=== PATIENT | female | born 1985 | race Caucasian/White ===

== ENCOUNTER 2018-10-05 10:31 | Emergency (ER) | payer SELFPAY ==
[~2018-10-05] VITALS: Ht 162.6 cm; Wt 74.8 kg
[~2018-10-05 10:31] MED LIST: AC325T PO; CA C1TAB66 PO; HYDR-700 PO; IBP600T1 PO; PRD50T PO; PREN1TAB39 PO; TR1C15 TOP
--- NOTE | 2018-10-05 11:12 | ED Lower Extremity ---
General Chief Complaint: Lower Extremity Stated Complaint: LEFT FOOT STEPPED ON NAIL Nursing Triage Note: Pt stepped on n ail with L foot. Pt reports last tetanus is unknown. Nursing Sepsis Screen: No Definite Risk Source: patient Exam Limitations: no limitations History of Present Illness Date Seen by Provider: Oct 05, 2018 Time Seen by Provider: 11:12 Initial Comments 33-year-old female patient presents to the emergency department for complaints of stepping on a nail with the left foot just prior to arrival. Patient was pulling limbs and turned stepping on the nail. Unknown last tetanus. Nail passed through a thick tennis shoe sole and sock. Location Injury Occurred: outiside home Onset: just prior to arrival Pain/Injury Location: left foot Method of Injury: other (puncture) Modifying Factors: Worse With Other (pain is worse with palpation and ambulation) Allergies and Home Medications Allergies Coded Allergies: No Known Drug Allergies (Verified , 08/10/07) Home Medications Acetaminophen 325 Mg Tablet, 325 MG PO PRN, (Reported) Ca Carbonate/Vitamin D3/Vit K 1 Each Tab.chew, 1 EACH PO DAILY, (Reported) Ibuprofen 600 Mg Tab, 600 MG PO Q6HR PRN, (Reported) Vits W-Ca,Fe,Fa(<1MG) 1 Each Tablet, 1 EACH PO DAILY, (Reported) Sulfamethoxazole/Trimethoprim 1 Each Tablet, 1 EACH PO BID Prescribed by: ALISSA HOPSON on 10/05/18 1228 Patient Home Medication List Home Medication List Reviewed: Yes Review of Systems Constitutional: no symptoms reported Respiratory: no symptoms reported Cardiovascular: no symptoms reported Musculoskeletal: see HPI, joint pain (left foot pain and puncture wound.) Skin: see HPI, other (puncture to the left foot) Psychiatric/Neurological: No Symptoms Reported All Other Systems Reviewed Negative Unless Noted: Yes (Negative excepted noted.) Past Esirkir-Mnnmzx-Qwnled Hx Past Med/Social Hx: Reviewed and Corrections made Patient Social History Alcohol Use: Denies Use Recreational Drug Use: No Smoking Status: Never a Smoker 2nd Hand Smoke Exposure: No Recent Foreign Travel: No Contact w/Someone Who Travel: No Recent Infectious Disease Expo: No Recent Hopitalizations: Yes ( X2) Physical Abuse: No Sexual Abuse: No Immunizations Up To Date Tetanus Booster (TDap): Unknown Date of Influenza Vaccine: May 06, 2011 Past Medical History Surgeries: Yes (knee, tonsillectomy) Respiratory: No Cardiac: No Neurological: No Reproductive Disorders: No Sexually Transmitted Disease: No Genitourinary: No Gastrointestinal: No Musculoskeletal: No Endocrine: No Cancer: No Psychosocial: No Integumentary: No Blood Disorders: No Family Medical History Reviewed Nursing Family Hx No Pertinent Family Hx Physical Exam Vital Signs Vital Signs - First Documented 10/05/18 11:00 Temp 97.8 Pulse 77 Resp 12 B/P (MAP) 128/77 (94) Pulse Ox 99 O2 Delivery Room Air Capillary Refill : Less Than 3 Seconds Height, Weight, BMI Height: 5'4.00" Weight: 165lbs. oz. 74.668386qr; BMI Method:Stated General Appearance: WD/WN, no apparent distress Cardiovascular: normal peripheral pulses, regular rate, rhythm, no murmur Respiratory: lungs clear, normal breath sounds, no respiratory distress, no accessory muscle use Knees: bilateral knee non-tender, bilateral knee normal inspection, bilateral knee normal range of motion, bilateral knee no evidence of injury Ankles: bilateral ankle non-tender, bilateral ankle normal inspection, bilateral ankle normal range of motion, bilateral ankle no evidence of injury Feet: right foot non-tender, right foot normal inspection; bilateral foot normal range of motion; right foot no evidence of injury; left foot pain (left plantar foot tenderness with a puncture wound noted. mild swelling. (see images).), left foot soft tissue tenderness, left foot swelling Neurologic/Tendon: normal sensation, normal motor functions, normal tendon functions, responds to pain, no evidence tendon injury Neurologic/Psychiatric: no motor/sensory deficits, alert, normal mood/affect, oriented x 3 Skin: normal color, warm/dry, other (puncture to the left distal plantar foot) Progress/Results/Core Measures Results/Orders My Orders Orders - ALISSA HOPSON Dipht,Pertuss(Acell),Tet Adult (Boostrix (10/05/18 11:30) Foot, Left, 3 Views (10/05/18 11:16) Ondansetron Oral Dissolve Tab (Zofran (10/05/18 12:13) Medications Given in ED Current Medications Medications Dose Ordered Sig/Ceasar Route Start Time Stop Time Status Last Admin Dose Admin Diphtheria/ Tetanus/Acell Pertussis 0.5 ml ONCE ONCE IM 10/05/18 11:30 10/05/18 11:31 DC 10/05/18 11:29 0.5 ML Vital Signs/I&O 10/05/18 10/05/18 11:00 12:39 Temp 97.8 97.8 Pulse 77 77 Resp 12 12 B/P (MAP) 128/77 (94) 128/77 (94) Pulse Ox 99 99 O2 Delivery Room Air Blood Pressure Mean: 94 Diagnostic Imaging Diagonstic Imaging: Xray Plain Films/CT/US/NM/MRI: other (left foot) Comments FOOT, LEFT, 3 VIEWS INDICATION: Stepped on a nail earlier in the day.. TECHNIQUE : 3 views of the left foot CORRELATION STUDY: None FINDINGS: The osseous structures of the foot are intact. Joint spaces are maintained. Alignment anatomic. Bipartite medial sesamoid bone over the great toe. There is small sesamoid bone of the metatarsal heads of all digits. Likely normal variation. Mildly prominent plantar calcaneal spur Soft tissues appearing unremarkable. No radiographic evidence for soft tissue foreign body. IMPRESSION: 1. Negative for acute findings of the foot. Dictated on workstation # [id number] Reviewed: Reviewed by Me (radiology report reviewed by me) Departure Communication (Admissions) Patient seen and evaluated. X-ray of the left foot obtained and tetanus booster given. Patient refuses pain medication at this time. States she'll take ibuprofen when she returns home. X-ray findings discussed with the patient. 172 chlorhexidine and sterile saline. Wound dressed with 4 x 4 gauze and a 3" Ramirez wrap. Proceed with discharge to home. Impression Primary Impression: Puncture wound of left foot excluding toes without complication Qualified Codes: S91.332A - Puncture wound without foreign body, left foot, initial encounter Disposition: , SELF-CARE Condition: Improved Departure-Patient Inst. Referrals: PAUL HALE MD (PCP/Family) Primary Care Physician Patient Instructions: Wound Care (DC) Add. Discharge Instructions: All discharge instructions reviewed with patient and/or family. Voiced understanding. Medications as instructed. Tylenol extra strength over-the- counter as directed for pain. Ibuprofen 800 mg by mouth every 8 hours as needed for pain. Elevate the left foot on pillows. Ice pack for 20 minute intervals as needed for pain. Shower with antibacterial soap. Cover with a bandage. Follow-up with your primary care provider for recheck as an outpatient. Call for appointment time. Return in the emergency department for worsened symptoms or any other concerns. Scripts Sulfamethoxazole/Trimethoprim (Bactrim Ds Tablet) 1 Each Tablet 1 EACH PO BID, #14 TAB 0 Refills Prov: ALISSA HOPSON 10/05/18 Images Extremities-Lower 1 - Puncture Wound 2 - Swelling, Tenderness ALISSA HOPSON Oct 05, 2018 11:12
[2018-10-05] MEDS ORDERED: TETANUS,DIPTH,PERTUSS P/F (BOOSTRIX) 0.5 ML VIAL IM ONE (11:30)
--- NOTE | 2018-10-05 12:02 | Diagnostic Imaging Report ---
INDICATION: Stepped on a nail earlier in the day.. TECHNIQUE: 3 views of the left foot CORRELATION STUDY: None FINDINGS: The osseous structures of the foot are intact. Joint spaces are maintained. Alignment anatomic. Bipartite medial sesamoid bone over the great toe. There is small sesamoid bone of the metatarsal heads of all digits. Likely normal variation. Mildly prominent plantar calcaneal spur Soft tissues appearing unremarkable. No radiographic evidence for soft tissue foreign body. IMPRESSION: 1. Negative for acute findings of the foot. Dictated by: Dictated on workstation # [id number]
[2018-10-05] MEDS ORDERED: SULF1TAB35 PO ×2 (12:05→12:28)
[2018-10-05] MEDS ORDERED: ONDANSETRON 4 MG (ZOFRAN) ORAL DISSOLVE TAB SL STA (12:13)
[2018-10-05 12:39] VITALS: BP 128/77
== END 2018-10-05 12:39 | disposition home or self-care (01) ==
LOC: EDUNIT# 10:31 → ER 10:33
DX: S91.332A Puncture wound without foreign body, left foot, initial encounter (principal); Z90.89 Acquired absence of other organs; Z23 Encounter for immunization; W45.0XXA Nail entering through skin, initial encounter
CPT/HCPCS: 73630; 90471; 90715

== ENCOUNTER 2019-05-24 11:33 | Inpatient (IN) | payer SELFPAY ==
[~2019-05-24] VITALS: Ht 165.1 cm; Wt 7.7 kg
[~2019-05-24 11:33] MED LIST changes: +SULF1TAB35 PO
[2019-05-24] MEDS ORDERED: NS IV 1000 ML 1,000 ML IV SCH (12:08)
[2019-05-24] MEDS ORDERED: ONDANSETRON 4 MG/2 ML (SDV) Z0FRAN IVP ONE (12:15)
[2019-05-24 12:22] LABS: BILIRUBIN,URINE NEGATIVE (NEGATIVE); CLARITY,URINE CLEAR; COLOR,URINE YELLOW; GLUCOSE, URINE (UA) NEGATIVE (NEGATIVE); KETONES,URINE 1+ (NEGATIVE); LEUKOCYTE ESTERASE ,URINE NEGATIVE (NEGATIVE); NITRITE,URINE NEGATIVE (NEGATIVE); PH,URINE 6.5 (5-9); PROTEIN,URINE NEGATIVE (NEGATIVE)
[2019-05-24 12:37] LABS: BACTERIA,URINE MODERATE /HPF
[2019-05-24 12:42] LABS: BASOPHILS % (AUTO) 0 % (0-10); EOSINOPHILS # (AUTO) 0.1 10^3/uL (0.0-0.3); EOSINOPHILS % (AUTO) 1 % (0-10); HEMATOCRIT 42 % (35-52); HEMOGLOBIN 14.9 G/DL (11.5-16.0); LYMPHOCYTES # (AUTO) 2.6 X 10^3 (1.0-4.0); LYMPHOCYTES % (AUTO) 21 % (12-44); MEAN CORPUSCULAR HEMOGLOBIN 31 PG (25-34); MEAN CORPUSCULAR HGB CONC 36 G/DL (32-36); MEAN CORPUSCULAR VOLUME 87 FL (80-99); MONOCYTES # (AUTO) 0.8 X 10^3 (0.0-1.0); MONOCYTES % (AUTO) 7 % (0-12); NEUTROPHILS # (AUTO) 8.6 X 10^3 (1.8-7.8); NEUTROPHILS % (AUTO) 71 % (42-75); PLATELET COUNT 256 10^3/uL (130-400); WHITE BLOOD COUNT 12.1 10^3/uL (4.3-11.0)
[2019-05-24 13:01] LABS: ALANINE AMINOTRANSFERASE 30 U/L (0-55); ALBUMIN 4.6 GM/DL (3.2-4.5); ALKALINE PHOSPHATASE 57 U/L (40-136); BILIRUBIN,TOTAL 0.8 MG/DL (0.1-1.0); BUN/CREATININE RATIO 22; CALCIUM 9.3 MG/DL (8.5-10.1); CARBON DIOXIDE 22 MMOL/L (21-32); CHLORIDE 106 MMOL/L (98-107); CREATININE SERUM 0.85 MG/DL (0.60-1.30); GFR ESTIMATED > 60; GLUCOSE 92 MG/DL (70-105); POTASSIUM 4.1 MMOL/L (3.6-5.0); SODIUM 139 MMOL/L (135-145); TOTAL PROTEIN 6.9 GM/DL (6.4-8.2)
--- NOTE | 2019-05-24 13:22 | Diagnostic Imaging Report ---
PROCEDURE: US Gallbladder. TECHNIQUE: Multiple real-time grayscale images were obtained over the right upper quadrant in various projections. INDICATION: Right upper quadrant pain. FINDINGS: Liver is normal in size at 15.8 cm. No discrete liver mass is detected. The portal vein is patent and shows normal direction of flow. The gallbladder wall does appear to be thickened at 6 mm. No definite stones or sludge are identified. No biliary ductal dilatation is seen. The pancreas was obscured by bowel gas. Right kidney is without calculi or hydronephrosis. There is some perihepatic fluid present. IMPRESSION: 1. Thickened gallbladder wall without cholelithiasis or sludge. 2. Upper GI abdominal ascites. Dictated by: Dictated on workstation # [id number]
[2019-05-24] MEDS ORDERED: fentaNYL INJECTION 100 MCG/2 ML AMP IVP ONE ×2 (13:30→14:00)
[2019-05-24] MEDS ORDERED: PIPERACILLIN SODIUM/TAZOBACTAM 4.5 GM in NS (IVPB) 100 ML IV ONE (13:30)
--- NOTE | 2019-05-24 13:37 | ED Abdominal Pain ---
General Chief Complaint: Abdominal/GI Problems Stated Complaint: LOWER ABD PAIN Nursing Triage Note: Pt amb to room #10 with c/o lower and upper Rt sided abd discomfort. Pt reports to have experienced x1 episode of emesis and x3 episodes of loose stools throughout this morning. Denies fever and reports chills. Reports onset of symptoms to be upon rise @ approx 0600 this am. Sepsis Screen: No Definite Risk Source of Information: Patient Exam Limitations: No Limitations History of Present Illness Date Seen by Provider: May 24, 2019 Time Seen by Provider: 12:00 Initial Comments This 34-year-old young lady presents to the emergency room with right sided abdominal pain. She became nauseated and vomited once around 04:00. Then she will get 06:00 with pain. She has severe pain with any movement including walking, breathing, talking, and riding in the car. She denies . She last ate a couple bites of eggs at 09:00. She tried taking Pepto-Bismol and Tylenol without benefit. She has had 3 stools in the last 24 hours and they have become soft. She denies fever. She is anxious. She denies with an LMP of 3 weeks ago. Allergies and Home Medications Allergies Coded Allergies: No Known Drug Allergies (Verified , 08/10/07) Home Medications Acetaminophen 325 Mg Tablet, 325 MG PO PRN, (Reported) Ca Carbonate/Vitamin D3/Vit K 1 Each Tab.chew, 1 EACH PO DAILY, (Reported) Ibuprofen 600 Mg Tab, 600 MG PO Q6HR PRN, (Reported) Vits W-Ca,Fe,Fa(<1MG) 1 Each Tablet, 1 EACH PO DAILY, (Reported) Sulfamethoxazole/Trimethoprim 1 Each Tablet, 1 EACH PO BID Prescribed by: ALISSA HOPSON on 10/05/18 9868 Patient Home Medication List Home Medication List Reviewed: Yes Review of Systems Review of Systems Constitutional: no symptoms reported EENTM: No Symptoms Reported Respiratory: No Symptoms Reported Cardiovascular: No Symptoms Reported Gastrointestinal: See HPI Genitourinary: No Symptoms Reported Musculoskeletal: no symptoms reported Skin: no symptoms reported Psychiatric/Neurological: See HPI Endocrine: No Symptoms Reported Past Mfpqnpw-Glrrlp-Akcnjm Hx Past Med/Social Hx: Reviewed and Corrections made Patient Social History Alcohol Use: Denies Use Recreational Drug Use: No Smoking Status: Never a Smoker 2nd Hand Smoke Exposure: No Recent Foreign Travel: No Contact w/Someone Who Travel: No Recent Infectious Disease Expo: No Recent Hopitalizations: Yes ( X2) Immunizations Up To Date Tetanus Booster (TDap): Unknown Date of Influenza Vaccine: May 06, 2011 Past Medical History Surgeries: Yes (knee, tonsillectomy) Ear Surgery, Orthopedic (bilateral knee arthroscopically), Tonsillectomy Respiratory: No Cardiac: No Neurological: No Reproductive Disorders: No Sexually Transmitted Disease: No Genitourinary: No Gastrointestinal: No Musculoskeletal: No Endocrine: No Cancer: No Psychosocial: No Integumentary: No Blood Disorders: No Family Medical History No Pertinent Family Hx Physical Exam Vital Signs Vital Signs - First Documented 05/24/19 11:46 Temp 36.6 Pulse 107 Resp 17 B/P (MAP) 130/92 (105) Pulse Ox 99 Capillary Refill : Less Than 3 Seconds Height/Weight/BMI Height: 5'4.00" Weight: 165lbs. oz. [id number]; 28.00 BMI Method:Stated General Appearance: WD/WN, mild distress HEENT: PERRL/EOMI, normal ENT inspection Neck: normal inspection Respiratory: lungs clear, normal breath sounds, no respiratory distress Cardiovascular: no edema, no murmur, tachycardia Gastrointestinal: normal bowel sounds, soft, tenderness (significant tenderness in the right upper quadrant. Must or tenderness in the right lower quadrant and left lower quadrant. There is pain to percussion as well. Ileopsoas sign is positive. 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, no motor/sensory deficits, alert, oriented x 3, other (anxious) Skin: normal color, warm/dry Progress/Results/Core Measures Results/Orders Lab Results Laboratory Tests Test 05/24/19 09:43 05/24/19 11:53 Range/Units White Blood Count 12.1 H 4.3-11.0 10^3/uL Red Blood Count 4.84 4.35-5.85 10^6/uL Hemoglobin 14.9 11.5-16.0 G/DL Hematocrit 42 35-52 % Mean Corpuscular Volume 87 80-99 FL Mean Corpuscular Hemoglobin 31 25-34 PG Mean Corpuscular Hemoglobin Concent 36 32-36 G/DL Red Cell Distribution Width 12.0 10.0-14.5 % Platelet Count 256 130-400 10^3/uL Mean Platelet Volume 10.0 7.4-10.4 FL Neutrophils (%) (Auto) 71 42-75 % Lymphocytes (%) (Auto) 21 12-44 % Monocytes (%) (Auto) 7 0-12 % Eosinophils (%) (Auto) 1 0-10 % Basophils (%) (Auto) 0 0-10 % Neutrophils # (Auto) 8.6 H 1.8-7.8 X 10^3 Lymphocytes # (Auto) 2.6 1.0-4.0 X 10^3 Monocytes # (Auto) 0.8 0.0-1.0 X 10^3 Eosinophils # (Auto) 0.1 0.0-0.3 10^3/uL Basophils # (Auto) 0.0 0.0-0.1 10^3/uL Sodium Level 139 135-145 MMOL/L Potassium Level 4.1 3.6-5.0 MMOL/L Chloride Level 106 98-107 MMOL/L Carbon Dioxide Level 22 21-32 MMOL/L Anion Gap 11 5-14 MMOL/L Blood Urea Nitrogen 19 H 7-18 MG/DL Creatinine 0.85 0.60-1.30 MG/DL Estimat Glomerular Filtration Rate > 60 BUN/Creatinine Ratio 22 Glucose Level 92 70-105 MG/DL Calcium Level 9.3 8.5-10.1 MG/DL Corrected Calcium 8.5-10.1 MG/DL Total Bilirubin 0.8 0.1-1.0 MG/DL Aspartate Amino Transf (AST/SGOT) 21 5-34 U/L Alanine Aminotransferase (ALT/SGPT) 30 0-55 U/L Alkaline Phosphatase 57 40-136 U/L C-Reactive Protein High Sensitivity 0.24 0.00-0.50 MG/DL Total Protein 6.9 6.4-8.2 GM/DL Albumin 4.6 H 3.2-4.5 GM/DL Lipase 23 8-78 U/L Serum Test, Qualitative NEGATIVE NEGATIVE Urine Color YELLOW Urine Clarity CLEAR Urine pH 6.5 5-9 Urine Specific [place] 1.020 1.016-1.022 Urine Protein NEGATIVE NEGATIVE Urine Glucose (UA) NEGATIVE NEGATIVE Urine Ketones 1+ H NEGATIVE Urine Nitrite NEGATIVE NEGATIVE Urine Bilirubin NEGATIVE NEGATIVE Urine Urobilinogen 0.2 < = 1.0 MG/DL Urine Leukocyte Esterase NEGATIVE NEGATIVE Urine RBC (Auto) NEGATIVE NEGATIVE Urine RBC NONE /HPF Urine WBC NONE /HPF Urine Squamous Epithelial Cells 5-10 /HPF Urine Crystals NONE /LPF Urine Bacteria MODERATE H /HPF Urine Casts NONE /LPF Urine Mucus NEGATIVE /LPF Urine Culture Indicated NO My Orders Orders - MARIBEL CARRERA MD Cbc With Automated Diff (05/24/19 12:08) Comprehensive Metabolic Panel (05/24/19 12:08) Hs C Reactive Protein (05/24/19 12:08) Hcg,Qualitative Serum (05/24/19 12:08) Ua Culture If Indicated (05/24/19 12:08) Ed Iv/Invasive Line Start (05/24/19 12:08) Us Gallbladder [id number] (05/24/19 12:08) Ed Iv/Invasive Line Start (05/24/19 12:08) Ns Iv 1000 Ml (Sodium Chloride 0.9%) (05/24/19 12:08) Ondansetron Injection (Zofran Injectio (05/24/19 12:15) Lipase (05/24/19 13:03) Fentanyl Injection (Sublimaze Injection (05/24/19 13:30) Piperacillin Sodium/Tazobactam (Zosyn Vi (05/24/19 13:30) Promethazine Injection (Phenergan Injec (05/24/19 14:00) Fentanyl Injection (Sublimaze Injection (05/24/19 14:00) Medications Given in ED Current Medications Medications Dose Ordered Sig/Ceasar Route Start Time Stop Time Status Last Admin Dose Admin Fentanyl Citrate 50 mcg ONCE ONCE IVP 05/24/19 13:30 05/24/19 13:31 DC 05/24/19 13:29 50 MCG Fentanyl Citrate 50 mcg ONCE ONCE IVP 05/24/19 14:00 05/24/19 14:01 DC 05/24/19 13:57 50 MCG Ondansetron HCl 8 mg ONCE ONCE IVP 05/24/19 12:15 05/24/19 12:16 DC 05/24/19 12:21 8 MG Piperacillin Sod/ Tazobactam Sod 4.5 gm/Sodium Chloride 100 ml @ 200 mls/hr ONCE ONCE IV 05/24/19 13:30 05/24/19 13:59 DC 05/24/19 14:10 200 MLS/HR Promethazine HCl 25 mg ONCE ONCE IVP 05/24/19 14:00 05/24/19 14:01 DC 05/24/19 13:59 25 MG Vital Signs/I&O 05/24/19 11:46 Temp 36.6 Pulse 107 Resp 17 B/P (MAP) 130/92 (105) Pulse Ox 99 Blood Pressure Mean: 105 POS Progress Progress Note : Progress Note Patient's pain was treated with fentanyl. She received Zofran for nausea. A liter of IV fluid was infused. Gallbladder ultrasound was positive for thickened wall. White count is slightly elevated. Patient appears to have acute cholecystitis. Dr. Schwab was consulted and plans to take her to surgery late tonight or early tomorrow. In the meantime, Zosyn is being administered for antibiotic therapy. Diagnostic Imaging Diagonstic Imaging: Ultrasound Plain Films/CT/US/NM/MRI: abdomen Comments NAME: ARMIN VO [facility] REC#: [id number] PT STATUS: REG ER : 1985 PHYSICIAN: MARIBEL CARRERA MD ADMIT DATE: 05/24/19/ER Draft Date of Exam:05/24/19 US GALLBLADDER [id number] PROCEDURE: US Gallbladder. TECHNIQUE: Multiple real-time grayscale images were obtained over the right upper quadrant in various projections. INDICATION: Right upper quadrant pain. FINDINGS: Liver is normal in size at 15.8 cm. No discrete liver mass is detected. The portal vein is patent and shows normal direction of flow. The gallbladder wall does appear to be thickened at 6 mm. No definite stones or sludge are identified. No biliary ductal dilatation is seen. The pancreas was obscured by bowel gas. Right kidney is without calculi or hydronephrosis. There is some perihepatic fluid present. IMPRESSION: 1. Thickened gallbladder wall without cholelithiasis or sludge. 2. Upper GI abdominal ascites. Dictated on workstation # [id number] Dict: 05/24/19 1317 Trans: 05/24/19 1322 [facility] [id number] Interpreted by: DEWEY PÉREZ MD Reviewed: Reviewed by La Departure Communication (Admissions) Time/Spoke to Admitting Phy: 13:26 Dr. Schwab Impression Primary Impression: Acute cholecystitis Disposition: 09 ADMITTED INPATIENT Condition: Improved Admissions Decision to Admit Reason: Admit from ER (General) Decision to Admit/Date: May 24, 2019 Time/Decision to Admit Time: 13:20 Departure-Patient Inst. Referrals: [facility] (PCP) Primary Care Physician AMBROCIO VALE (Family) Primary Care Physician AMRIBEL CARRERA MD May 24, 2019 13:37 POS
[2019-05-24] MEDS ORDERED: PROMETHAZINE INJ 25 MG/ML (PHENERGAN) AMP IVP ONE (14:00)
[2019-05-24] MEDS ORDERED: HYDROmorphone 2 MG/ML VIAL (DILAUDID) IV ONE (15:15)
--- NOTE | 2019-05-24 15:30 | NUR ---
GILDAARMIN Stallworth admitted to room 412-1, with an admitting diagnosis of ACUTE CHOLECYSTITIS, on 05/24/19 from ER via CART, accompanied by ER STAFF.ARMIN VO introduced to surroundings, call light, bed controls, phone, TV, temperature control, lights, meal times, smoking policy, visitor policy, side rail policy, bathrooms and showers. Patient Rights given to patient in the handbook. ARMIN VO verbalizes understanding that [facility] is not responsible for the loss or damage to any personal effects or valuables that are kept in the patients posession during their hospitalization. The following Patient Care Plans were discussed with the PT: Discharge Planning, PAIN, AND FL VOL DEFICIT. ARMIN VO verbalizes understanding of Interdisciplinary Patient Education. Patient and/or family were informed about the Rapid Response Team and its purpose. PT CME TO FLOOR WITH [facility] [place] [facility]
[2019-05-24 15:31] VITALS: BP 85/57
[2019-05-24] MEDS ORDERED: CATHETER FLUSH 10 ML SYR IV PRN (15:45)
[2019-05-24] MEDS ORDERED: HYDROmorphone 2 MG/ML VIAL (DILAUDID) IV PRN (15:45)
[2019-05-24] MEDS ORDERED: PROMETHAZINE INJ 25 MG/ML (PHENERGAN) AMP IV PRN (15:45)
[2019-05-24] MEDS: D5 1/2 NS W/KCL 20 MEQ/L 1,000 ML IV SCH ×2 (15:52→23:48)
--- NOTE | 2019-05-24 17:56 | History & Physical-Surgical ---
[facility] 05/24/19 1756: History of Present Illness History of Present Illness Reason for visit/HPI C/C: Right sided abdominal pain Clarisse is a 34 y/o female that presented to [facility] for right sided abdominal pain. The abdominal pain started around 6:00am today 05/24/19. She has also felt nausea and has vomited once. Moving makes it worse and laying on her left side makes it better. The patient has pain that starts on the RUQ and radiated to the right upper shoulder. Labs done in the ER show an elevated WBC of 12.1, Qualitative tests was negative and a gallbladder U/S shows 6mm gallbladder wall thickening without cholelithiasis or stone and upper GI abdominal ascites. . Date of Admission May 24, 2019 at 14:13 Date Seen by a Provider: May 24, 2019 Time Seen by a Provider: 17:30 I consulted on this patient on 05/24/19 17:50 Attending Physician Jose Zaidi DO Admitting Physician [place] Consult Allergies and Home Medications Allergies Coded Allergies: No Known Drug Allergies (Verified , 08/10/07) Home Medications Acetaminophen 325 Mg Tablet, 325 MG PO PRN, (Reported) Ca Carbonate/Vitamin D3/Vit K 1 Each Tab.chew, 1 EACH PO DAILY, (Reported) Vits W-Ca,Fe,Fa(<1MG) 1 Each Tablet, 1 EACH PO DAILY, (Reported) Past Wsekpfj-Qooqzs-Ngklni Hx Patient Social History Alcohol Use: Denies Use Recreational Drug Use: No Smoking Status: Never a Smoker 2nd Hand Smoke Exposure: No Recent Foreign Travel: No Contact w/Someone Who Travel: No Recent Infectious Disease Expo: No Recent Hopitalizations: Yes ( X2) Immunizations Up To Date Tetanus Booster (TDap): Unknown Date of Influenza Vaccine: Apr 13, 2019 Surgeries History of Surgeries: Yes (knee, tonsillectomy) Surgeries: Ear Surgery, Orthopedic (bilateral knee arthroscopically), Tonsillectomy Respiratory History of Respiratory Disorde: No Cardiovascular History of Cardiac Disorders: No Neurological History of Neurological Disord: No Reproductive System Hx Reproductive Disorders: No Sexually Transmitted Disease: No Genitourinary History of Genitourinary Disor: No Gastrointestinal History of Gastrointestinal Di: No Musculoskeletal History of Musculoskeletal Dis: No Endocrine History of Endocrine Disorders: No Cancer History of Cancer: No Psychosocial History of Psychiatric Problem: No Integumentary History of Skin or Integumenta: No Blood Transfusions History of Blood Disorders: No Family Medical History Significant Family History: No Pertinent Family Hx Review of Systems Constitutional: no symptoms reported EENTM: no symptoms reported Respiratory: no symptoms reported Cardiovascular: no symptoms reported Gastrointestinal: RUQ, abdominal pain (RUQ), nausea, vomiting, other (Pain radiating to the right shoulder. ) Genitourinary: no symptoms reported Musculoskeletal: no symptoms reported Skin: no symptoms reported Psychiatric/Neurological: No Symptoms Reported Physical Exam Vital Signs Vital Signs - First Documented 05/24/19 05/24/19 11:46 15:20 Temp 36.6 Pulse 107 Resp 17 B/P (MAP) 130/92 (105) Pulse Ox 99 O2 Delivery Room Air Capillary Refill : Less Than 3 Seconds Height, Weight, BMI Height: 5'4.00" Weight: 165lbs. oz. 74.230097bl; 28.35 BMI Method:Stated General Appearance: WD/WN, Mild Distress (on movement ) Eyes: Bilateral Eye PERRL, Bilateral Eye EOMI HEENT: PERRL/EOMI Neck: Full Range of Motion, Non Tender, Supple Respiratory: Chest Non Tender, Normal Breath Sounds, No Accessory Muscle Use, No Respiratory Distress Cardiovascular: Regular Rate, Rhythm, No Edema, Normal Peripheral Pulses Gastrointestinal: No No Organomegaly (RUQ tenderness with radiation to the rig ht shoulder); Tenderness Extremity: Normal Capillary Refill, Non Tender, No Calf Tenderness, No Pedal Edema Neurologic/Psychiatric: Alert, Oriented x3, hand rug braider II-XII Norm as Tested Skin: Normal Color, Warm/Dry Lymphatic: No Adenopathy Data Review Labs Laboratory Tests 05/24/19 09:43: White Blood Count 12.1H, Red Blood Count 4.84, Hemoglobin 14.9, Hematocrit 42, Mean Corpuscular Volume 87, Mean Corpuscular Hemoglobin 31, Mean Corpuscular Hemoglobin Concent 36, Red Cell Distribution Width 12.0, Platelet Count 256, Mean Platelet Volume 10.0, Neutrophils (%) (Auto) 71, Lymphocytes (%) (Auto) 21, Monocytes (%) (Auto) 7, Eosinophils (%) (Auto) 1, Basophils (%) (Auto) 0, Neutrophils # (Auto) 8.6H, Lymphocytes # (Auto) 2.6, Monocytes # (Auto) 0.8, Eosinophils # (Auto) 0.1, Basophils # (Auto) 0.0, Sodium Level 139, Potassium Level 4.1, Chloride Level 106, Carbon Dioxide Level 22, Anion Gap 11, Blood Urea Nitrogen 19H, Creatinine 0.85, Estimat Glomerular Filtration Rate > 60, BUN/Creatinine Ratio 22, Glucose Level 92, Calcium Level 9.3, Corrected Calcium , Total Bilirubin 0.8, Aspartate Amino Transf (AST/SGOT) 21, Alanine Aminotransferase (ALT/SGPT) 30, Alkaline Phosphatase 57, C-Reactive Protein High Sensitivity 0.24, Total Protein 6.9, Albumin 4.6H, Lipase 23, Serum Test, Qualitative NEGATIVE 05/24/19 11:53: Urine Color YELLOW, Urine Clarity CLEAR, Urine pH 6.5, Urine Specific [place] 1.020, Urine Protein NEGATIVE, Urine Glucose (UA) NEGATIVE, Urine Ketones 1+H, Urine Nitrite NEGATIVE, Urine Bilirubin NEGATIVE, Urine Urobilinogen 0.2, Urine Leukocyte Esterase NEGATIVE, Urine RBC (Auto) NEGATIVE, Urine RBC NONE, Urine WBC NONE, Urine Squamous Epithelial Cells 5-10, Urine Crystals NONE, Urine Bacteria MODERATEH, Urine Casts NONE, Urine Mucus NEGATIVE, Urine Culture Indicated NO Assessment/Plan Assessment/Plan Admission Diagonsis Acute cholecystitis/ Acalculous Cholecystitis, Leukocytosis, N/V - Laparoscopic cholecystectomy: removal of gallbladder tomorrow 05/25/19, giving Zosyn and fluids to calm inflammation. The risks and benefits were explained to the patient for laparoscopic cholecystectomy and all other indicated procedures. Rosa acknowledged and accepts them and wishes to proceed. - Pain control - N/V control Clinical Quality Measures DVT/VTE Risk/Contraindication: RFS Level Per Nursing on Admit: 0=No Risk/No VTE PPX JOSE ZAIDI DO 05/24/190: History of Present Illness History of Present Illness Reason for visit/HPI CC RUQ abd pain 34 year old female witih right upper quadrant abdominal pain that started this morning. Pain is sharp and radiates up to right shoulder. Movement makes pain worse and laying still makes better. Had nausea and emesis. Continuous pain now. Moderate to severe. Had gallbladder u/s demonstrating gallbladder wall at 6 mm. WBC 12.1 Allergies and Home Medications Allergies Coded Allergies: No Known Drug Allergies (Verified , 08/10/07) Home Medications Acetaminophen 325 Mg Tablet, 325 MG PO PRN, (Reported) Ca Carbonate/Vitamin D3/Vit K 1 Each Tab.chew, 1 EACH PO DAILY, (Reported) Vits W-Ca,Fe,Fa(<1MG) 1 Each Tablet, 1 EACH PO DAILY, (Reported) Patient Home Medication List Home Medication List Reviewed: Yes Past Bvmctcz-Oiftqv-Ziiotp Hx Patient Social History Alcohol Use: Denies Use Smoking Status: Never a Smoker Surgeries History of Surgeries: Yes Surgeries: Ear Surgery, Orthopedic (bilateral knee arthroscopically), Tonsillectomy Respiratory History of Respiratory Disorde: No Cardiovascular History of Cardiac Disorders: No Neurological History of Neurological Disord: No Reproductive System : No Genitourinary History of Genitourinary Disor: No Gastrointestinal History of Gastrointestinal Di: No Musculoskeletal History of Musculoskeletal Dis: No Endocrine History of Endocrine Disorders: No HEENT History of HEENT Disorders: No Cancer History of Cancer: No Psychosocial History of Psychiatric Problem: No Family Medical History Significant Family History: No Pertinent Family Hx Review of Systems Constitutional: no symptoms reported EENTM: no symptoms reported Gastrointestinal: RUQ, see HPI, abdominal pain (RUQ), nausea, vomiting, other ( Pain radiating to the right shoulder. ) Genitourinary: no symptoms reported Musculoskeletal: no symptoms reported Skin: no symptoms reported Psychiatric/Neurological: No Symptoms Reported Physical Exam General Appearance: Mild Distress HEENT: PERRL/EOMI Neck: Non Tender, Supple Respiratory: Chest Non Tender, No Accessory Muscle Use, No Respiratory Distress Cardiovascular: Regular Rate, Rhythm, Normal Peripheral Pulses Gastrointestinal: Tenderness (right upper quadrant) Rectal: Deferred Back: No CVA Tenderness Extremity: Normal Capillary Refill, Non Tender, No Calf Tenderness Neurologic/Psychiatric: Alert, Oriented x3, No Motor/Sensory Deficits, Normal Mood/Affect, hand rug braider II-XII Norm as Tested Skin: Normal Color, Warm/Dry Lymphatic: No Adenopathy Assessment/Plan Assessment/Plan Admission Status: Observation Assessment/Plan Acute cholecystitis/ Acalculous Cholecystitis, Leukocytosis, N/V Laparoscopic cholecystectomy intraoperative cholangiogram all other indicated p rocedures. Risks and benefits discussed and she wishes to proceed. NPO after midnight, can have ice chips till midnight. On Zosyn and fluids Pain control N/V control SCD's Supervisory-Addendum Brief Verification & Attestation Participated in pt care: history, MDM, physical Personally performed: exam, history, MDM, supervision of care Care discussed with: Medical Student Procedures: n/a Results interpretation: Verified all documentation Verification and Attestation of Medical Student E/M Service A medical student performed and documented this service in my presence. I reviewed and verified all information documented by the medical student and made modifications to such information, when appropriate. I personally performed the physical exam and medical decision making. Jose Zaidi, May 24, 2019,22:34 [facility] May 24, 2019 17:56 JOSE VERGARA DO May 24, 2019 22:30 POS
[2019-05-24 20:00] VITALS: BP 103/70
[2019-05-24] MEDS: fentaNYL INJECTION 100 MCG/2 ML AMP IV PRN (20:21)
[2019-05-24] MEDS ORDERED: NS (IVPB) 0 ML ONE (20:32)
[2019-05-24] MEDS ORDERED: PIPERACILLIN/TAZO 4.5 GM VIAL (ZOSYN) IV ONE ×2 (20:32→23:52)
[2019-05-24] MEDS: ONDANSETRON 4 MG/2 ML (SDV) Z0FRAN IV PRN (20:44)
[2019-05-24] MEDS: PIPERACILLIN/TAZO 4.5 GM/NS 100 ML IV SCH ×2 (20:45)
[2019-05-24] MEDS ORDERED: NS (IVPB) 100 ML ONE (23:52)
[2019-05-25] VITALS (15 sets, daily range): BP systolic 84–112; BP diastolic 43–68
--- NOTE | 2019-05-25 00:19 | NUR ---
THIS RN NOTIFIED THAT PT BP 80s/40s. THIS RN NOTIFIED DR. ZAIDI, NEW ORDERS OBTAINED, SEE ORDER HISTORY.
[2019-05-25] MEDS ORDERED: NS IV 1000 ML 1,000 ML IV ONE (00:30)
--- NOTE | 2019-05-25 01:54 | NUR ---
AMENDMENT TO NOTE ABOVE: PT BP 80s/50s.
[2019-05-25] MEDS: fentaNYL INJECTION 100 MCG/2 ML AMP IV PRN ×3 (03:41→11:53)
[2019-05-25] MEDS: D5 1/2 NS W/KCL 20 MEQ/L 1,000 ML IV SCH ×2 (03:46→07:43)
[2019-05-25] MEDS: PIPERACILLIN/TAZO 4.5 GM/NS 100 ML IV SCH ×2 (03:49)
--- NOTE | 2019-05-25 05:40 | NUR ---
PT UP IN SHOWER FOR SURGICAL SCRUB.
[2019-05-25] MEDS: ONDANSETRON 4 MG/2 ML (SDV) Z0FRAN IV PRN ×2 (08:07→11:52)
[2019-05-25] MEDS ORDERED: BUP/EPI 0.5% 1:200,000 (MARCAINE) 10ML VIAL IJ ONE (08:15)
[2019-05-25] MEDS ORDERED: NEOSTIGMINE 3 MG/3 ML VIAL ONE (09:00)
[2019-05-25] MEDS ORDERED: LIDOCAINE PF 2% 5 ML (XYLOCAINE) VIAL ONE (09:00)
[2019-05-25] MEDS ORDERED: MIDAZOLAM 2 MG/2 ML (VERSED) VIAL ONE (09:00)
[2019-05-25] MEDS ORDERED: ROCURONIUM 10 MG/ML 5 ML SYRINGE IV ONE ×2 (09:00→10:01)
[2019-05-25] MEDS ORDERED: SEVOFLURANE (ULTANE) 15 ML INHAL SOLN ONE ×3 (09:00→10:21)
[2019-05-25] MEDS ORDERED: proPOfol 200 MG/20 ML (DIPRIVAN) VIAL IV ONE (09:00)
[2019-05-25] MEDS ORDERED: ONDANSETRON 4 MG/2 ML (SDV) Z0FRAN ONE ×2 (09:00→10:19)
[2019-05-25] MEDS ORDERED: DEXAMETHASONE 10 MG/ML (DECADRON) 1 ML VIAL ONE (09:00)
[2019-05-25] MEDS: LACTATED RINGERS 1,000 ML IV PRN ×2 (09:00→09:35)
[2019-05-25] MEDS ORDERED: fentaNYL INJECTION 100 MCG/2 ML AMP ONE ×2 (09:00→09:37)
[2019-05-25] MEDS ORDERED: GLYCOPYRROLATE 0.2 MG/ML (ROBINUL) 2 ML VIAL ONE (09:00)
[2019-05-25] MEDS ORDERED: SCOPOLAMINE 1.5 MG (TRANSDERM-SCOP) PATCH ONE (09:07)
[2019-05-25] MEDS ORDERED: FAMOTIDINE 20MG/2ML IV (PEPCID) ONE (09:07)
[2019-05-25] MEDS ORDERED: IOPAMIDOL 61% 30 ML (ISOVUE 300) VIAL IV ONE (09:39)
[2019-05-25] MEDS ORDERED: PHENYLEPHRINE 100 MCG/ML 10 ML (ANESTHESIA) SYR ONE (09:44)
[2019-05-25] MEDS ORDERED: PIPERACILLIN/TAZOBACTAM (BULK) 4.5 GM in NS (IVPB) 100 ML IV ONE (09:45)
[2019-05-25] MEDS ORDERED: ONDANSETRON 4 MG/2 ML (SDV) Z0FRAN IVP PRN ×2 (10:00→13:15)
[2019-05-25] MEDS ORDERED: fentaNYL INJECTION 100 MCG/2 ML AMP IVP ONE (10:00)
[2019-05-25] MEDS ORDERED: MEPERIDINE (DEMEROL) INJ 50 MG/ML IVP ONE (10:00)
[2019-05-25] MEDS ORDERED: morphine INJ 10 MG/ML 1ML (SYR OR VIAL) IVP ONE (10:00)
[2019-05-25] MEDS ORDERED: ceFAZolin INJECTION 1,000 MG ONE (10:04)
[2019-05-25] MEDS ORDERED: ceFAZolin INJECTION 1,000 MG in WATER (STERILE) FOR INJECTION 10 ML IV NR (10:15)
--- NOTE | 2019-05-25 10:40 | NUR ---
Report received from Rhea BRUCE.
--- NOTE | 2019-05-25 11:11 | Progress Note-Post Operative ---
Post-Operative Progess Note Surgeon (s)/Systems Applications Programming Lead (s) Surgeon SHANTEL ZAIDI DO Systems Applications Programming Lead: Deniz Pre-Operative Diagnosis cholecystitis, ruq abd pain Post-Operative Diagnosis right ovarian hemorrhagic cyst, hemoperitoneum Procedure & Operative Findings Date of Procedure 05/25/19 Procedure Performed/Findings diagnostic laparoscopy Anesthesia Type general Estimated Blood Loss Estimated blood loss (mL): old blood approximately 1500 mL in abdomen, minimal surgical Specimens/Packing Specimens Removed na SHANTEL ZAIDI DO May 25, 2019 11:11 POS
--- NOTE | 2019-05-25 11:30 | NUR ---
Report received from Porsha Escalera RN.
--- NOTE | 2019-05-25 11:40 | NUR ---
vital signs obtained. plan of care reviewed with pt and . pt tearful and reports pain and nausea.
--- NOTE | 2019-05-25 12:09 | Anesthesia-General Post-Op ---
General Patient Condition Mental Status/LOC: Same as Preop Cardiovascular: Satisfactory Nausea/Vomiting: Absent Respiratory: Satisfactory Pain: Controlled Complications: Absent Post Op Complications Complications None Follow Up Care/Instructions Patient Instructions None needed. Anesthesia/Patient Condition Patient Condition Patient is doing well, no complaints, stable vital signs, no apparent adverse anesthesia problems. No complications reported per nursing. LENORE SULLIVAN CRNA May 25, 2019 12:09 POS
--- NOTE | 2019-05-25 12:26 | NUR ---
Dr Williamson called and notified of blood pressure, pulse obtained and pain medication given.
--- NOTE | 2019-05-25 12:45 | NUR ---
Dr Williamson to bedside and reviewed plan of care with pt and .
--- NOTE | 2019-05-25 13:05 | NUR ---
Rn to bedside. pt resting. denies needs at this time.
[2019-05-25] MEDS ORDERED: D5 LR IV SOLUTION 1,000 ML IV SCH (13:07)
[2019-05-25] MEDS ORDERED: DOCU-143 PO (13:10)
[2019-05-25] MEDS ORDERED: ACHD5005 PO (13:10)
[2019-05-25] MEDS ORDERED: IBUP-1773 PO (13:10)
--- NOTE | 2019-05-25 13:12 | Discharge Inst-Women's Service ---
Discharge Inst-Women's Serv Depart Medication/Instructions New, Converted or Re-Newed RX: RX on Chart Problems Reviewed?: Yes Consults/Follow Up Additional Follow Up: Yes Orders/Referrals Dr. Williamson in 7-10 days Activity Activity: Activity as Tolerated Driving Instructions: No Driving for 1 Week NO SMOKING: NO SMOKING Nothing Inside Vagina: No Douching, No [place], No Tampons Diet Discharge Diet: No Restrictions Symptoms to Report to : Bleeding Excessive, Pain Increased, Fever Over 101 Degrees F, Vaginal Bleeding Increase, Questions/Concerns For Any Problems or Questions: Contact Your Physician Skin/Wound Care Infection Signs and Symptoms: Increased Redness, Foul Odor of Wound, Increased Drainage, Skin Itchy or Has a Rash, Increased Swelling, Temperature Above 101 F Operative Area Clean and Dry: Keep Incision Clean/Dry Stitches/Coram/Dermabond: Dermabond, Care of Stitches Bathing Instructions: WHIT Garcia DO May 25, 2019 13:12 POS
[2019-05-25] MEDS ORDERED: KETOROLAC 30 MG/ML VIAL IVP ONE (13:15)
--- NOTE | 2019-05-25 14:20 | NUR ---
IV redressed due to leaking noted around insertion. continued leaking noted. will call dr hill.
[2019-05-25] MEDS ORDERED: ONDANSETRON 4 MG (ZOFRAN) ORAL DISSOLVE TAB PO PRN (14:45)
[2019-05-25] MEDS: ACETAMINOPHEN 500 MG TAB (TYLENOL) PO PRN (15:05)
--- NOTE | 2019-05-25 16:45 | NUR ---
Ambulating in halls
--- NOTE | 2019-05-25 17:31 | NUR ---
towels given along with gown per pt request to shower.
[2019-05-25] MEDS: HYDROcodone/APAP 5 MG/325 MG (LORTAB) TAB PO PRN (18:17)
[2019-05-25] MEDS: IBUPROFEN 600 MG (MOTRIN) TAB PO SCH (20:54)
--- NOTE | 2019-05-25 23:14 | OPERATIVE REPORT ---
DATE OF SERVICE: INTRAOPERATIVE CONSULTATION REQUESTED BY: Jose Schwab DO PREOPERATIVE DIAGNOSIS: Thickening of the gallbladder on ultrasound. POSTOPERATIVE DIAGNOSIS: Hematoperitoneum with ruptured right hemorrhagic ovarian cyst. INTRAOPERATIVE CONSULTATION IN DETAIL: I was called to the operating room after finding of free blood that had clotted that was in the peritoneal cavity upon entrance on laparoscopic evaluation by Dr. Schwab and Dr. Guaman. The patient had been kept overnight for suspected acute cholecystitis; however, upon evaluation laparoscopically, the gallbladder appeared to have reactive inflammation due to hematoperitoneum. On evaluation in the pelvis, there was of note a ruptured right ovarian cyst that was still bleeding somewhat as well as clot formation throughout the pelvis and abdomen as well as a clot on the side of that right ovary. There was still a persistent cyst noted on that right ovary as well. I was consulted to come evaluate and treat this due to it being a gynecologic pathology. Once in the operating room, Dr. Schwab and Dr. Guaman already scrubbed into the case. There were three trocar sites and the patient was in supine position and in Trendelenburg. There were three trocars in place and infraumbilical trocar, one in the left lower quadrant and there is one on the right mid abdomen as well. I scrubbed into the case and evaluated the pelvis first starting by suction irrigating the pelvis and evaluating the right ovary. It is lifted upward and retracted. I am able to see the area of concern that is bleeding. I take a hook spatula and opened this up using cautery and cauterized the edges stopping the bleeding from the ovary and evacuating a small blood clot from the ovary as well as cystic fluid. Once this was done, the ovary itself appears hemostatic. I copiously irrigated again the pelvis using normal saline. There was no active bleeding noted from any of my dissection planes. At that point, I deemed my part of the procedure complete and handed the procedure back over to Dr. Schwab and Dr. Guaman to proceed with closure and postoperative orders. Job ID: [id number] DocumentID: [id number] Dictated Date: 05/25/2019 10:33:30 Cat Scanner Operator Date: 05/25/2019 14:48:18 Dictated By: WHIT CHEW DO
[2019-05-26 00:27] VITALS: BP 87/51
[2019-05-26] MEDS: ACETAMINOPHEN 500 MG TAB (TYLENOL) PO PRN (00:33)
[2019-05-26 04:30] VITALS: BP 97/56
[2019-05-26] MEDS: IBUPROFEN 600 MG (MOTRIN) TAB PO SCH (04:30)
[2019-05-26 07:33] LABS: BASOPHILS % (AUTO) 0 % (0-10); EOSINOPHILS % (AUTO) 1 % (0-10); HEMATOCRIT 31 % (35-52); HEMOGLOBIN 10.6 G/DL (11.5-16.0); LYMPHOCYTES # (AUTO) 3.3 X 10^3 (1.0-4.0); LYMPHOCYTES % (AUTO) 43 % (12-44); MEAN CORPUSCULAR HEMOGLOBIN 31 PG (25-34); MEAN CORPUSCULAR HGB CONC 35 G/DL (32-36); MEAN CORPUSCULAR VOLUME 90 FL (80-99); MEAN PLATELET VOLUME 10.3 FL (7.4-10.4); MONOCYTES # (AUTO) 0.6 X 10^3 (0.0-1.0); MONOCYTES % (AUTO) 8 % (0-12); NEUTROPHILS # (AUTO) 3.8 X 10^3 (1.8-7.8); NEUTROPHILS % (AUTO) 49 % (42-75); PLATELET COUNT 193 10^3/uL (130-400); WHITE BLOOD COUNT 7.8 10^3/uL (4.3-11.0)
[2019-05-26 08:20] VITALS: BP 94/50
[2019-05-26] MEDS: HYDROcodone/APAP 5 MG/325 MG (LORTAB) TAB PO PRN (08:27)
--- NOTE | 2019-05-26 08:31 | Progress Note ---
Standard Progress Note Progress Notes/Assess & Plan Date Seen by a Provider: May 26, 2019 Time Seen by a Provider: 08:25 Progress/Assessment & Plan Patient doing well POD laparoscopy. Reports some itching and skin color changes, but otherwise no concerns. AMbulating and voiding freely. Incisions: c/d/i Diagnosis; POD 1 Laparoscopy and evacuation of hematoperitoneum P: RTC in 7-10 days PO precautions reviewed. Vital Sign - Last 24 Hours 05/25/19 05/25/19 05/25/19 05/25/19 10:37 10:37 10:40 10:45 Temp 36.4 Resp 18 20 B/P (MAP) 112/64 (80) 110/65 (80) Pulse Ox 100 100 O2 Delivery OxyMask OxyMask OxyMask OxyMask O2 Flow Rate 5 5 5 5 05/25/19 05/25/19 05/25/19 05/25/19 10:50 11:00 11:00 11:10 Resp 20 20 20 B/P (MAP) 107/63 (78) 110/61 (77) 111/53 (72) Pulse Ox 100 99 99 O2 Delivery OxyMask OxyMask Room Air OxyMask O2 Flow Rate 5 5 5 5 05/25/19 05/25/19 05/25/19 05/25/19 11:15 11:20 11:30 11:35 Resp 20 B/P (MAP) 110/62 (78) Pulse Ox 98 O2 Delivery Room Air Room Air Room Air Room Air 05/25/19 05/25/19 05/25/19 05/25/19 11:35 11:43 11:45 13:55 Temp 36.4 36.4 37.1 Pulse 80 80 Resp 20 20 18 B/P (MAP) 110/62 (78) 84/43 (57) 105/68 (80) Pulse Ox 97 99 O2 Delivery Room Air Room Air Room Air Room Air 05/25/19 05/25/19 05/25/19 05/25/19 17:25 18:15 20:54 20:54 Temp 37.2 37.1 36.7 Pulse 99 90 97 Resp 18 20 20 B/P (MAP) 94/64 (74) 102/59 (73) 94/53 (67) Pulse Ox 99 100 98 O2 Delivery Room Air Room Air Room Air Room Air 05/26/19 05/26/19 00:27 04:30 Temp 36.9 37.3 Pulse 83 84 Resp 18 18 B/P (MAP) 87/51 (63) 97/56 (70) Pulse Ox 98 98 O2 Delivery Room Air Room Air Intake and Output 05/25/19 05/25/19 05/26/19 15:00 23:00 07:00 Intake Total 1110 ml 400 ml Balance 1110 ml 400 ml Laboratory Tests Test 05/26/19 07:05 Range/Units White Blood Count 7.8 4.3-11.0 10^3/uL Red Blood Count 3.43 L 4.35-5.85 10^6/uL Hemoglobin 10.6 #L 11.5-16.0 G/DL Hematocrit 31 L 35-52 % Mean Corpuscular Volume 90 80-99 FL Mean Corpuscular Hemoglobin 31 25-34 PG Mean Corpuscular Hemoglobin Concent 35 32-36 G/DL Red Cell Distribution Width 12.0 10.0-14.5 % Platelet Count 193 130-400 10^3/uL Mean Platelet Volume 10.3 7.4-10.4 FL Neutrophils (%) (Auto) 49 42-75 % Lymphocytes (%) (Auto) 43 12-44 % Monocytes (%) (Auto) 8 0-12 % Eosinophils (%) (Auto) 1 0-10 % Basophils (%) (Auto) 0 0-10 % Neutrophils # (Auto) 3.8 1.8-7.8 X 10^3 Lymphocytes # (Auto) 3.3 1.0-4.0 X 10^3 Monocytes # (Auto) 0.6 0.0-1.0 X 10^3 Eosinophils # (Auto) 0.0 0.0-0.3 10^3/uL Basophils # (Auto) 0.0 0.0-0.1 10^3/uL WHIT CHEW DO May 26, 2019 08:31 POS
--- NOTE | 2019-05-26 22:22 | OPERATIVE REPORT ---
DATE OF SERVICE: 05/25/2019 PREOPERATIVE DIAGNOSIS: Cholecystitis. POSTOPERATIVE DIAGNOSES: Hemoperitoneum, hemorrhagic right ovarian cyst. SURGEON: Shantel Schwab DO STYLE ADVISOR: Dr. Guaman, assisted in retraction, dissection and closure. ANESTHESIA: General. ESTIMATED BLOOD LOSS: O blood approximately 1500 mL in the abdomen. Minimal from surgical. SPECIMENS: None. INDICATIONS: The patient is a 34-year-old female who presented with right-sided abdominal pain, right upper quadrant. She had a gallbladder ultrasound performed that demonstrated the patient to have thickened gallbladder wall as well that she had acute cholecystitis. The patient was discussed risks and benefits of procedure and wished to proceed with procedure, who wished to proceed. Consent was signed in the chart. PROCEDURE: Diagnostic laparoscopy performed by Dr. Schwab and please see Dr. Williamson note for his portion of surgical intervention. PROCEDURE IN DETAIL: The patient is a 34-year-old female who was taken to the operating suite. She was prepped and draped in sterile fashion. Timeout was performed. Local anesthetic was infiltrated just above the umbilicus and cautery was used to dissect down to the fascia, which was then scored and then opened. A 0 Vicryl was placed in a [id number] fashion for closure at the end. A 12 mm trocar was inserted in the abdomen and pneumoperitoneum was achieved. The scope was then inserted in the abdomen noting hemoperitoneum throughout the entire abdomen. The gallbladder had a normal appearance and the pelvis was inspected with a large clot down in the pelvis. Under direct visualization of the laparoscope, a 5 mm trocar was placed in the right lower quadrant and a 5 mm trocar was placed in left lower quadrant. The blood and clot was then evacuated with copious amounts of irrigation. The large clot was sitting on the right ovary that had a ruptured hemorrhagic ovarian cyst. Uterus had normal appearance. The left cyst had ; however, no other pathology. The right cyst had the ruptured hemorrhagic cyst, which had minimal bleeding from it at this time. Again noting a large clot that was evacuated from it. The abdomen was then irrigated and suctioned multiple times. Dr. Williamson was called in for evaluation of the gynecological pathology. The small bowel had normal appearance. The colon had normal appearance. Liver had normal appearance. Gallbladder had normal appearance. The stomach had normal appearance. No other pathology except for the ruptured ovarian hemorrhagic cyst noted. Once Dr. Williamson's portion was done, the abdomen was then irrigated and suctioned. The 5 mm trocars were then removed. The 0 Vicryl was then tied closing the 12 mm fascial defect and the skin was then closed using 4-0 Monocryl in subcuticular fashion. The abdomen was then washed and dried and Skin Affix was placed over the incisions. The patient tolerated procedure well without any complications. She was taken to recovery room in stable condition. Care was turned over to Dr. Williamson. DISCUSSION: Since the patient's pathology was noted to be from the right hemorrhagic ovarian cyst, the gallbladder had normal appearance. The ultrasound findings just be reactive which should not cause the patient any problems at this time. Still could possibly have a future gallbladder pathology, but since this is not the current pathology causing her issues and just a finding on ultrasound, we decided to not perform cholecystectomy. Job ID: [id number] DocumentID: [id number] Dictated Date: 05/26/2019 19:34:52 Vice President Supply Chain Date: 05/26/2019 22:21:36 Dictated By: SHANTEL SCHWAB DO
== END 2019-05-26 09:55 | disposition home or self-care (01) | DRG 749 ==
LOC: EDUNIT# 11:33 → ER 11:34 → 4TH 14:13 → WS 05-25 10:49
PROVIDERS: ADMIT Obstetrics & Gynecology; ATTEND Obstetrics & Gynecology
PROC: 0W3R4ZZ Control Bleeding in Genitourinary Tract, Percutaneous Endoscopic Approach (ICD-10-PCS; principal; 2019-05-24)
PROC: 0DCW4ZZ Extirpation of Matter from Peritoneum, Percutaneous Endoscopic Approach (ICD-10-PCS; 2019-05-24)
DX: N83.201 Unspecified ovarian cyst, right side (principal); K66.1 Hemoperitoneum
CPT/HCPCS: 36415; 76705; 80053; 81000; 83690; 84703; 85025; 86141; 87081; 96361; 96365; 96375